=== PATIENT | female | born 1960 | race Two or more races ===

== ENCOUNTER 2020-04-06 09:08 | Inpatient (IN) | payer OTHER ==
[2020-04-06 09:29] VITALS: BMI 22.4
[2020-04-06] MEDS ORDERED: NICOTINE POLACRILEX 2 MG GUM BUC PRN (09:58)
[2020-04-06] MEDS ORDERED: MENTHOL/PHENOL 1 EACH UD MM PRN (09:58)
[2020-04-06] MEDS ORDERED: MAG HYDROX/AL HYDROX/SIMETH 30 ML UNIT-DOSE CUP PO PRN (09:58)
[2020-04-06] MEDS ORDERED: MAGNESIUM CITRATE 300 ML BOTTLE PO PRN (09:58)
[2020-04-06] MEDS ORDERED: chlordiazePOXIDE HCL 25 MG CAPSULE PO PRN (09:58)
[2020-04-06] MEDS ORDERED: BISMUTH SUBSALICYLATE 524 MG/30 ML UD PO PRN (09:58)
[2020-04-06] MEDS ORDERED: METHOCARBAMOL 500 MG TABLET PO PRN (09:58)
[2020-04-06] MEDS ORDERED: ACETAMINOPHEN 325 MG TABLET (FP) PO PRN (09:58)
[2020-04-06] MEDS: chlordiazePOXIDE HCL 25 MG CAPSULE PO SCH ×3 (12:11→22:33)
[2020-04-06] MEDS: hydrOXYzine PAMOATE 25 MG CAPSULE (FP) PO SCH ×4 (12:11→22:33)
[2020-04-06] MEDS: PRENATAL VITAMINS W/ FOLIC ACID TABLET (FP) PO SCH (12:11)
[2020-04-06] MEDS: NICOTINE 21 MG/24 HOURS TOPICAL PATCH TD SCH (12:15)
[2020-04-06] MEDS ORDERED: MELATONIN 5 MG TABLETS PO PRN (12:40)
[2020-04-06 13:51] LABS: HEMOGLOBIN 16.9 GM/dL (10.7-15.3); MCH 32.7 pg (25.7-33.7); MCHC 33.7 g/dl (32.0-36.0); MEAN CELL VOLUME 96.9 fl (80-96); MEAN PLT VOLUME 8.2 fl (7.5-11.1); PLATELET COUNT 263 K/MM3 (134-434); RBC 5.16 M/mm3 (3.60-5.2); RDW 13.6 % (11.6-15.6); WHITE BLOOD COUNT 6.2 K/mm3 (4.0-10.0)
[2020-04-06 14:02] LABS: CHLORIDE 105 mmol/L (98-107); SODIUM 139 mmol/L (136-145)
[2020-04-06 14:09] LABS: ALBUMIN 3.8 g/dl (3.4-5.0); ANION GAP 4 MMOL/L (8-16); CALCIUM 9.2 mg/dL (8.5-10.1); CO2 29 mmol/L (21-32); GLUCOSE,RANDOM 73 mg/dL (74-106)
[2020-04-06 14:12] LABS: SGPT/ALT 21 U/L (13-61)
[2020-04-06 14:13] LABS: SGOT/AST 19 U/L (15-37)
[2020-04-06 14:14] LABS: BILIRUBIN,TOTAL 0.4 mg/dL (0.2-1); TOT PROT 7.2 g/dl (6.4-8.2)
[2020-04-06 14:15] LABS: ALK PHOS 79 U/L (45-117)
[2020-04-06 14:51] LABS: HIV INTERPRETATION NEGATIVE (NEGATIVE)
[2020-04-06] MEDS: IBUPROFEN 400 MG TABLET (FP) PO PRN (18:02)
[2020-04-06] MEDS ORDERED: MELATONIN 5 MG TABLETS PO SCH (22:00)
[2020-04-06] MEDS: THIAMINE HCL 100 MG TABLET (FP) PO SCH (22:33)
[2020-04-07] MEDS: chlordiazePOXIDE HCL 25 MG CAPSULE PO SCH ×4 (05:50→23:22)
[2020-04-07] MEDS: hydrOXYzine PAMOATE 25 MG CAPSULE (FP) PO SCH ×5 (05:51→23:23)
[2020-04-07] MEDS: IBUPROFEN 400 MG TABLET (FP) PO PRN (05:52)
[2020-04-07] MEDS: PRENATAL VITAMINS W/ FOLIC ACID TABLET (FP) PO SCH (10:41)
[2020-04-07] MEDS: NICOTINE 21 MG/24 HOURS TOPICAL PATCH TD SCH (10:41)
[2020-04-07] MEDS: MAGNESIUM HYDROX 2400MG/30ML ORAL SUSPENSION 30 ML CUP PO PRN (18:27)
[2020-04-07] MEDS: THIAMINE HCL 100 MG TABLET (FP) PO SCH (23:23)
[2020-04-08] MEDS: hydrOXYzine PAMOATE 25 MG CAPSULE (FP) PO SCH ×5 (06:54→23:14)
[2020-04-08] MEDS: chlordiazePOXIDE HCL 25 MG CAPSULE PO SCH ×4 (06:54→23:14)
[2020-04-08] MEDS: ACETAMINOPHEN 325 MG TABLET (FP) PO PRN (06:55)
[2020-04-08] MEDS: PRENATAL VITAMINS W/ FOLIC ACID TABLET (FP) PO SCH (10:09)
[2020-04-08] MEDS: NICOTINE 21 MG/24 HOURS TOPICAL PATCH TD SCH (10:09)
[2020-04-08] MEDS ORDERED: P-EPHED 60MG/TRIPROLIDI 2.5MG TABLET PO PRN (10:18)
[2020-04-08] MEDS: MAGNESIUM HYDROX 2400MG/30ML ORAL SUSPENSION 30 ML CUP PO PRN (15:01)
[2020-04-08] MEDS: ONDANSETRON *ODT* 4 MG TABLET SL PRN (19:00)
[2020-04-08] MEDS: THIAMINE HCL 100 MG TABLET (FP) PO SCH (23:14)
[2020-04-09] MEDS ORDERED: chlordiazePOXIDE HCL 10 MG CAPSULE PO PRN
[2020-04-09] MEDS: chlordiazePOXIDE HCL 10 MG CAPSULE PO SCH ×4 (07:28→22:15)
[2020-04-09] MEDS: hydrOXYzine PAMOATE 25 MG CAPSULE (FP) PO SCH ×6 (07:29→22:37)
[2020-04-09] MEDS: NICOTINE 21 MG/24 HOURS TOPICAL PATCH TD SCH (10:26)
[2020-04-09] MEDS: PRENATAL VITAMINS W/ FOLIC ACID TABLET (FP) PO SCH (10:27)
[2020-04-09] MEDS: THIAMINE HCL 100 MG TABLET (FP) PO SCH (22:15)
[2020-04-10] MEDS: chlordiazePOXIDE HCL 10 MG CAPSULE PO SCH ×2 (05:44→20:08)
[2020-04-10] MEDS: hydrOXYzine PAMOATE 25 MG CAPSULE (FP) PO SCH ×4 (05:45→20:08)
[2020-04-10] MEDS: IBUPROFEN 400 MG TABLET (FP) PO PRN (05:46)
[2020-04-10] MEDS: ONDANSETRON *ODT* 4 MG TABLET SL PRN (05:47)
[2020-04-10] MEDS: NICOTINE 21 MG/24 HOURS TOPICAL PATCH TD SCH (10:29)
[2020-04-10] MEDS: PRENATAL VITAMINS W/ FOLIC ACID TABLET (FP) PO SCH (10:31)
[2020-04-11] MEDS: hydrOXYzine PAMOATE 25 MG CAPSULE (FP) PO SCH (00:08)
[2020-04-11] MEDS: THIAMINE HCL 100 MG TABLET (FP) PO SCH (00:09)
[2020-04-11] MEDS ORDERED: hydrOXYzine PAMOATE 25 MG CAPSULE (FP) PO PRN (01:01)
[2020-04-11] MEDS: ACETAMINOPHEN 325 MG TABLET (FP) PO PRN (01:09)
[2020-04-11] MEDS ORDERED: chlordiazePOXIDE HCL 10 MG CAPSULE PO ONE (05:00)
[2020-04-11] MEDS ORDERED: ERYTHROMYCIN 0.5% OPHTHALMIC OINTMENT 3.5 GM TUBE OS SCH (10:00)
[2020-04-11 11:06] VITALS: BP 138/77; PULSE 87; TEMP 98.2
== END 2020-04-11 12:04 | disposition home or self-care (01) | DRG 773 ==
LOC: YASAS 09:08 → Y6N 11:22
PROVIDERS: ADMIT Allergy & Immunology; ATTEND Allergy & Immunology
PROC: HZ2ZZZZ Detoxification Services for Substance Abuse Treatment (ICD-10-PCS; principal; 2020-04-06)
DX: F10.230 Alcohol dependence with withdrawal, uncomplicated (principal); F11.10 Opioid abuse, uncomplicated; F14.20 Cocaine dependence, uncomplicated; F12.20 Cannabis dependence, uncomplicated; F17.210 Nicotine dependence, cigarettes, uncomplicated; F19.282 Other psychoactive substance dependence with psychoactive substance-induced sleep disorder; F32.9 Major depressive disorder, single episode, unspecified; K21.9 Gastro-esophageal reflux disease without esophagitis; D25.9 Leiomyoma of uterus, unspecified; S09.93XA Unspecified injury of face, initial encounter; S05.02XA Injury of conjunctiva and corneal abrasion without foreign body, left eye, initial encounter; H57.11 Ocular pain, right eye; Y04.2XXA Assault by strike against or bumped into by another person, initial encounter; Y93.89 Activity, other specified; Y92.238 Other place in hospital as the place of occurrence of the external cause; Y99.9 Unspecified external cause status
CPT/HCPCS: 36415; 70450-TC; 70486-TC; 71046-TC-FY; 80053; 84484; 85027; 86780; 87389; 93005; 93010; 99284-25; C9803; Q0162; U0003

== ENCOUNTER 2020-04-10 14:23 | Emergency (ER) | payer OTHER ==
[2020-04-10 14:32] VITALS: TEMP 97.8; BMI 25.1
[2020-04-10] MEDS ORDERED: ACETAMINOPHEN 650 MG/20.3 ML ORAL SOLUTION (CUPS) PO ONE (15:26)
[2020-04-10] MEDS ORDERED: ERYTHROMYCIN 0.5% OPHTHALMIC OINTMENT 3.5 GM TUBE OS ONE (15:26)
[2020-04-10] MEDS ORDERED: ERYTHROMYCIN 0.5% OPHTHALMIC OINTMENT 3.5 GM TUBE ONE (15:28)
[2020-04-10] MEDS ORDERED: ACETAMINOPHEN 325 MG TABLET (FP) ONE (15:28)
[2020-04-10 23:41] VITALS: BP 110/75; PULSE 88
[2020-04-10] MEDS ORDERED: ACETAMINOPHEN 325 MG TABLET (FP) PO ONE (23:51)
[2020-04-11] MEDS ORDERED: ACETAMINOPHEN 325 MG TABLET (FP) ONE (00:21)
== END 2020-04-11 00:31 | disposition home or self-care (01) ==
LOC: JERFT 14:23 → JER 14:23
DX: H57.11 Ocular pain, right eye (principal); S05.02XA Injury of conjunctiva and corneal abrasion without foreign body, left eye, initial encounter; S09.93XA Unspecified injury of face, initial encounter
CPT/HCPCS: 70450-TC; 70486-TC; 99284-25